=== PATIENT | male | born 1990 | race Caucasian/White ===

== ENCOUNTER 2024-01-25 16:26 | Outpatient (CLI) | payer BC, SELFPAY ==
--- OUTSIDE RECORDS SUMMARY | 2024-01-25 16:29 | XMS_ITS | Clinical Summary ---
Author Organization [facility] Address [address], [place] [address] Care Team Providers Care Bit Shaver Name Role Phone MaliaIdris martinez MD Primary Care Provider [phone] Source Comments You are receiving this document as you are listed as the primary care provider,follow-up provider, or the patient has been referred to you for consultation.This is in compliance with the Medicare and[facility] E[facility] Incentive Program,which states Providers who transition their patient to another setting of careor provider of care or refers their patient to another provider of care shouldprovide summary care record for each transition of care or referral. [employer] Allergies Active Allergy Reactions Criticality Noted Date Comments Acetaminophen 10/14/2003 PN: LW Reaction: HIVES/ OPEN SORES Naproxen Hives,Rash,Other, se e comments 07/23/2011 PN: Severe skin reaction, erythema, open lesions in pubic region and right thigh Other 03/11/2006 PN: LW Other1: -blue dye #2 causes open sores Medications Medication Sig Dispensed Refills Start Date End Date Status ALBUterol sulfate HFA 108 (90 BASE) MCG/ACT inhalerIndications:As thma, exercise induced (HRC) Inhale 1-2 Puffs every 4 hours as needed for Wheezing. 1 Inhaler 3 09/03/2016 Active Varenicline Tartrate (CHANTIXPAK) 0.5 MG X 11 & 1 MG X 42 tablet 1 wk before you stop smoking take 0.5mg daily on days 1-3, 0.5mg 2 times each day on days 4-7, then 1mg 2 times daily 53 Tab 0 09/03/2016 Active varenicline (CHANTIX) 1 MG tablet Take 1 Tab by mouth two times a day. 56 Tab 2 09/03/2016 Active Active Problems Problem Noted Date Diagnosed Date Asthma, exercise induced 09/03/2016 Pemphigus 10/20/2003 Overview (01/21/2017): LW Onset: ; Pemphigus NOS Resolved Problems Problem Noted Date Diagnosed Date Resolved Date Tobacco abuse 05/19/2012 10/04/2012 Immunizations Name Administration Dates Next Due TDAP (ADACEL) 10/02/2005 Tdap 09/03/2016 Family History Medical History Relation Name Comments Diabetes Negative Family History Heart Disease Negative Family History Social History Tobacco Use Types Packs/Day Years Used Date Smoking Tobacco: Every Day Cigarettes Smokeless Tobacco: Former Comments:Smoking History Pac ks/day: Alcohol Use Standard Drinks/Week Comments Yes 2 (1 standard drink = 0.6 oz pur e alcohol) Sex and Gender Information Value Date Recorded Sex Assigned at Not on file Gender Identity Not on file Sexual Orientation Not on file Last Filed Vital Signs Vital Sign Reading Time Taken Comments Blood Pressure 120/78 09/03/2016 1:45 PM CDT Pulse 84 09/03/2016 1:45 PM CDT Temperature 36.6 ??C (97.9 ??F) 01/11/2015 8:42 AM CD T Respiratory Rate 16 09/07/2015 3:28 PM CDT Oxygen Saturation 97% 01/11/2015 8:42 AM CDT Inhaled Oxygen Concentration - - Weight 69.9 kg (154 lb) 09/03/2016 1:45 PM CDT Height 177.2 cm (5' 9.75) 09/03/2016 1:45 PM CD T Body Mass Index 22.26 09/03/2016 1:45 PM CDT Plan of Treatment Health Maintenance Due Date Last Done Comments Hep C Screening (Preventive Services) 1988 Adult Preventive Visit 02/21/2006 HepB (1) 02/21/2007 Asthma ACT 09/03/2017 09/03/2016 COVID-19 Vaccine (1 - 2022-2 4 season) 2023 Cholesterol 02/21/2023 Influenza (#1) 2024 DTaP/Tdap/Td (3 - Tdap) 09/03/2026 09/04/19 17, 10/02/2005 Zoster/Shingles (1 of 2) 02/21/2038 HIV Screening (Preventive Services) Completed 01/08/2006 HPV Vaccine Aged Out No longer eligi ble based on patient's age to complete this topic HepA Aged Out No longer eligi ble based on patient's age to complete this topic Hib Aged Out No longer eligi ble based on patient's age to complete this topic IPV (Polio) Aged Out No longer eligi ble based on patient's age to complete this topic MCV4 Aged Out No longer eligi ble based on patient's age to complete this topic Pneumococcal Aged Out No longer eligi ble based on patient's age to complete this topic Procedures Procedure Name Priority Date/Time Associated Diagnosis Comments HIV ANTIBODY Routine 01/08/2006 1:20 PM CDT from Last 3 Months or Most Recently Relevant to Health Maintenance Results * HIV Antibody (01/08/2006 1:20 PM CDT) HIV 1/HIV 2 Non Reac Non Reac HP CONVERSION 01/08/2006 1:20 PM CDT Acosta Mcclure MD LAB_1 HP CONVERSION from Last 3 Months or Most Recently Relevant to Health Maintenance Care Teams Bit Shaver Relationship Specialty [place] [id number] [place] [address] PCP - General Family Practice 09/02/16
== END 2024-01-25 16:27 | disposition home or self-care (01) ==
PROVIDERS: PCP Family Medicine; Visit Provider Family Medicine
DX: I10 Essential (primary) hypertension (principal)
CPT/HCPCS: 80048

== ENCOUNTER 2024-05-17 16:15 | Outpatient (CLI) | payer BC, SELFPAY | END 2024-05-17 16:16 | disposition home or self-care (01) | PROVIDERS: PCP Family Medicine; Visit Provider Family Medicine | DX: I10 Essential (primary) hypertension (principal) | CPT/HCPCS: 80048 ==

== ENCOUNTER 2024-12-30 14:30 | Outpatient (RCR) | payer BC, SELFPAY | END 2025-03-08 13:50 | disposition home or self-care (01) | PROVIDERS: PCP Family Medicine | DX: M54.30 Sciatica, unspecified side (principal); Z51.89 Encounter for other specified aftercare | CPT/HCPCS: 97110; 97140; 97161 ==